=== PATIENT | female | born 1950 | race Caucasian/White ===

== ENCOUNTER 2022-10-24 09:00 | Outpatient (RCR) | payer MEDICARE, SELFPAY ==
--- NOTE | 2022-09-26 13:05 | PTOPEVAL1 ---
Assessment and note entered by Desmond Zayas, PT Evaluation Information Assessment Status Evaluation Diagnosis L shoulder pain and R ankle pain Subjective Information Patient reports she has been having L shoulder and R ankle pain for awhile. The L shoulder pain is worst with overhead lifting and reaching like cans out of the pantry. The R ankle pain is worse since she had a she thinks hip replacement about a year ago. Both joints feel better after her exercises that she has been doing for awhile. No pain with sleeping and no radiating pain on either joint. Reported Pain Level Pain Score 0,0: Self Report Additional Pain Score Comments Pain worse in the morning. Assessment PT Clinical Summary Silvana is a 71 year old female coming into the clinic with L shoulder and R ankle pain. Appears to be arthritic and she is doing exercises every evening . Recommended to patient to do exercises in the morning and afternoon to prevent everything from stiffening up. Physical therapy will work on adjusting HEP and doing manual passive range of motion and stretching of the ankle and shoulder. Manual and modalities as needed for pain control. Patient hesitant to coming to therapy often because she does not want to ask her sister for too many rides. Plan of Care Interventions Electrical Stimulation,Gait Training,Hot Pack/Cold Pack,Manual Therapy,Neuro Re-education,Patient/ Caregiver Education,Therapeutic Activities, Therapeutic Exercise,Ultrasound PT Services Indicated Yes Treatment Frequency and 0-1x/wk for 4 weeks Duration These treatments will address the objective and functional deficits as defined above. The patient will be advanced safely and appropriately in order for the patient to progress towards his/her prior level of function. Additional exercises will be introduced and as well as a comprehensive home exercise program upon discharge, if needed, ?to ensure carryover of functional gains achieved in the clinic. This treatment plan has been reviewed and agreement upon by the patient.
--- NOTE | 2022-09-26 13:05 | OPREHPOC ---
Outpatient Therapy Plan of Care This is a Multidisciplinary Plan of Care that may contain components documented by all disciplines (PT, OT, and ST.) PT Problem 1 PT Problem #1 Knowledge Deficit PT Goal 1 Goal Independent with HEP Target Visit 3 PT Problem 2 PT Problem #2 Impaired Strength PT Goal 1 Goal TONY LE and UE 4+/5 Target Visit 3 PT Problem 3 PT Problem #3 Impaired Range of Motion PT Goal 1 Goal L shoulder flexion 135 degrees Target Visit 3
--- NOTE | 2022-10-24 09:33 | PTOPDC ---
Assessment and note entered by Desmond Zayas, PT Evaluation Information Assessment Status Discharge Diagnosis L shoulder and R ankle pain. Subjective Information Patient reports she is feeling a lot better no pain in the ankle and only 1/10 max on the shoulder. Patient reports she is doing her HEP and feels like she is good, not needing any other therapy at this time. Reported Pain Level Pain Score 1,0: Self Report Assessment PT Clinical Summary Silvana is a 71 year old female coming into the clinic with a diagnosis of L shoulder and R ankle pain and stiffness. Patient was given an HEP and has been faithfully doing the exercises. Pain in ankle is gone and shoulder has diminished to no more than 1/10. Patient has met her strength and pain goals, but not range of motion exercises. Patient okay with being discharged with HEP. Plan of Care PT Services Indicated No
== END 2022-10-24 15:04 | disposition home or self-care (01) ==
LOC: ANHPT 09:00
PROVIDERS: PCP Family Medicine; Visit Provider Family Medicine
DX: M25.571 Pain in right ankle and joints of right foot (principal); M25.512 Pain in left shoulder
CPT/HCPCS: 97110; 97140; 97161

== ENCOUNTER 2023-06-17 05:18 | Inpatient (IN) | payer MEDICARE, SELFPAY ==
[2023-06-17] VITALS (45 sets, daily range): BP systolic 122–159; BP diastolic 86–133; PULSE 80–165; RESP 16–30; TEMP 36.1–36.8; O2SAT 86–100; BMI 22.7
--- NOTE | ~2023-06-17 | XR_ITS ---
Portable chest x-ray Comparison: 06/13/2023 Clinical History: Chest pain Findings: There is mild right basilar haziness. Left lung clear. Cardiomediastinal silhouette is st able. There is moderate to advanced degenerative change of the left glenohumeral joint. Impression: Mild right basilar haziness. Correlate for right basilar pneumonia. Reviewed, dictated and finalized at [facility]. NG STUDIES DIRECTOR Impression: Mild right basilar haziness. Correlate for right basilar pneumonia.
--- NOTE | ~2023-06-17 | CT_ITS ---
EXAMINATION: CTA chest PE protocol DATE: 06/17/2023 17:36 INDICATION: rule out PE TECHNIQUE: Computed tomography angiography (CTA) of the chest was performed with 100 mL Omnipaque-350 intravenous contrast timed to evaluate the pulmonary arteries. Coronal maximum intensity projection 3D-reconstructions were created by the technologist. The dose-length product (DLP) was 151.04 mGy-cm. Automated exposure control and iterative reconstruction technique were employed. COMPARISON: None. FINDINGS: Lung parenchyma and airways: Mild diffuse ground glass opacities with septal thickening. Bibasilar at electasis/scar. Patent airways. Pleura: Unremarkable. Thoracic inlet, axillae and chest wall: Unremarkable. Thoracic aorta: Minimal arch calcification. No dilation or dissection.. Mediastinum: Dilated central pulmonary arteries as can be seen with pulmonary arterial hypertension. Heart and pericardium: Moderate cardiomegaly. Coronary artery calcifications: . Upper abdomen: No significant finding. Bones: Severe left glenohumeral degenerative change with large joint effusion. Pulmonary arteries: Study quality: Adequate. No pulmonary emboli detected. IMPRESSION: No CT evidence of acute pulmonary embolus. Cardiomegaly with mild interstitial edema. Severe left shoulder osteoarthritis with large glenohumeral joint effusion and likely synovitis. Reviewed, dictated and finalized at location [facility]. AL SECRETARY
--- NOTE | 2023-06-17 05:20 | ECG_ITS ---
Measurements Intervals [place] Rate: 166 P: RI: 0 QRS: 114 QRSD: 94 T: -72 QT: 272 QTc: 453 Interpretive Statements ATRIAL FIBRILLATION WITH RAPID VENTRICULAR RESPONSE INCOMPLETE RIGHT BUNDLE BRANCH BLOCK ST DEVIATION AND MODERATE T-WAVE ABNORMALITY, CONSIDER LATERAL ISCHEMIA ST DEVIATION AND MODERATE T-WAVE ABNORMALITY, CONSIDER INFERIOR ISCHEMIA ABNORMAL ECG NO PREVIOUS ECG AVAILABLE FOR COMPARISON Electronically Signed On 06-17-2023 18:23:39 ROD BENDING MACHINE OPERATOR by Mike Abdalla M.D.
[2023-06-17] MEDS: ASPIRIN 81 MG CHEWABLE TABLET 324 MG PO (05:42)
[2023-06-17 05:49] LABS: Basophils Absolute Auto 0.1 K/mm3 (0.0-0.1); Basophils Percent Auto 0.6 % (0.2-1.2); Hematocrit 41.5 % (37.0-47.0); Hemoglobin 13.1 g/dL (12.0-15.0); Immature Granulocyte Absolute 0.03 K/mm3 (0.00-0.031); Immature Granulocyte Percent A 0.3 % (0-0.5); Lymphocytes Absolute Auto 2.11 K/mm3 (0.9-3.2); Lymphocytes Percent Auto 20.8 % (18.3-44.2); Mean Corpuscular HGB Conc 31.6 g/dl (32-36); Mean Corpuscular Hemoglobin 31.4 pg (26-34); Mean Corpuscular Volume 99.5 fl (80-100); Mean Platelet Volume 10.4 fl (7.4-10.4); Monocytes Absolute Auto 0.8 K/mm3 (0.1-0.6); Monocytes Percent Auto 7.5 % (2.6-8.5); Neutrophils Absolute Auto 7.2 K/mm3 (1.3-6.7); Neutrophils Percent Auto 70.8 % (45.5-73.1); Platelet Count Result 456 k/mm3 (150-375); Red Blood Count 4.17 M/mm3 (4.2-5.4); Red Cell Distribution Width 12.6 % (11.5-14.5); White Blood Count 10.1 K/mm3 (4.5-10.0)
[2023-06-17] MEDS: dilTIAZem HCl INJ 25 MG/5 ML VIAL 10 MG IV PUSH (05:49)
[2023-06-17] MEDS: dilTIAZem 100 MG/100 ML 100 MG/100 ML BAG IV CONT (05:49)
--- NOTE | 2023-06-17 05:54 | ED.CHESTPAIN ---
HPI - Chest Pain General Chief Complaint: Chest Pain Stated Complaint: CP, SOB Time Seen by Provider: 06/17/23 05:38 History of Present Illness HPI narrative: 72-year-old female present to the emergency department for evaluation of chest pain and shortness of breath has been going on for the last 3 days. Patient was started on a Z-Madi at home. Patient states he has been having some intermittent chest pain with this as well. Patient denies any prior cardiac history. Patient does have history of hypertension high cholesterol but denies any history of coronary artery disease. Patient does have history of CP Related Data Home Medications Medication Instructions Recorded Confirmed ascorbic acid (vitamin C) 250 mg 250 mg PO DAILY 11/27/21 04/03/23 tablet Allergies Allergy/AdvReac Type Severity Reaction Status Date / Time No Known Allergies Allergy Verified 06/13/23 14:13 Review of Systems Review of Systems: All systems reviewed & are unremarkable except as noted in HPI and below PMFSH Past Medical History Medical History (Updated 06/17/23 @ 07:14 by Jesus Manuel Guillermo MD) Arthritis Cardiac valve prolapse Cerebral palsy Cyst in hand Dermoid cyst of scalp Diarrhea Difficulty swallowing Excess ear wax Ganglion cyst of wrist Hypertension Left shoulder pain Pneumonia Right ankle pain SOB (shortness of breath) Surgical History Surgical History History of hip surgery Family History Family History Father Aneurysm Mother Hypertension Sibling Diabetes mellitus Social History Social History Smoking status: Never smoker Second hand tobacco smoke exposure: No Alcohol intake: never Substance use: never Lack of Transportation: No Lack of Food: Never True Current Housing: I Have Housing Concerned About Future Housing: No Difficulty Paying Gas/Electric Bills: No Difficulty Paying for Meds: No Currently Unemployed: No Difficulty w/ Childcare or Family Care: No Living arrangements: with family Occupation/Education: occupation Gender identity (if verbalized by the patient): Female Sexual Orientation (if Verbalized by the Patient): Straight or Heterosexual Exam Narrative: APPEARANCE: Well appearing, no pain, no distress, well-nourished. HEAD: normocephalic, atraumatic. EYES: PERRLA/EOMI, conjunctivae clear. NOSE: Normal no drainage EARS:TMS clear with good light reflex. THROAT: Pharynx clear, no exudate. NECK: Supple. No adenopathy, no masses. RESPIRATORY: Airway patent, respirations nonlabored. Clear to auscultation bilaterally, no rales, rhonchi, wheezing. CARDIOVASCULAR: AFib with RVR ABDOMINAL: Soft, nontender, nondistended, normal bowel sounds MUSCULOSKELETAL: Moves all extremities. Strength/ROM intact, No edema, No calf tenderness. NEURO: Alert. Cranial nerves II through XII intact. SKIN: Warm, dry. Normal Color Course Course Emergency Course: 72-year-old female presenting to emergency department for evaluation of chest pain and shortness of breath. Upon arrival to the emergency department patient was AFib with RVR. Patient has no prior history of AFib. Patient was treated with Cardizem and did have rate control. Patient's initial troponin was negative. Chest x-ray was concerning for pneumonia, blood cultures were ordered and patient was started on Rocephin in addition to the azithromycin that she is currently taking. Case discussed with hospitalist patient was stepped into the IMU. Cardiology was consulted and they will see the patient today. Patient family were updated on the results of workup and plan for admission. All questions concerns were addressed. Vital Signs Vital signs: Vital Signs Temperature 97 F L 06/17/23 05:36 Pulse Rate 157 H 06/17/23 05:36 Respiratory Rate 24 H 0
[2023-06-17 06:02] LABS: INR 1.1; Prothrombin Time 14.5 Seconds (11.1-14.7)
[2023-06-17 06:03] LABS: Partial Thromboplastin Time 29.9 SECONDS (22.3-36.8)
[2023-06-17 06:12] LABS: Troponin I < 0.012 ng/mL (0.000-0.034)
[2023-06-17 06:17] LABS: Alanine Aminotransferase 174 U/L (6-35); Albumin Level 4.6 g/dL (3.5-5.1); Alkaline Phosphatase 210 U/L (38-126); Anion Gap 9 mmol/L (8-16); Aspartate Amino Transferase 130 U/L (14-36); Bilirubin,Total 0.8 mg/dL (0.2-1.3); Blood Urea Nitrogen 34 mg/dL (7-17); Calcium 9.7 mg/dL (8.4-10.2); Carbon Dioxide 22 mmol/L (22-30); Chloride 106 mmol/L (98-107); Estimated CRCL calculation 63 ml/min; Estimated Glomerular Filt Rate > 60; Glucose 154 mg/dL (65-110); Lipase 96 U/L (23-300); Potassium 4.4 mmol/L (3.4-5.0); Sodium 137 mmol/L (137-145)
[2023-06-17] MEDS: dilTIAZem HCl INJ 25 MG/5 ML VIAL 15 MG IV PUSH (06:25)
--- NOTE | 2023-06-17 06:33 | ECG_ITS ---
Measurements Intervals [place] Rate: 105 P: ME: 0 QRS: 96 QRSD: 102 T: 214 QT: 341 QTc: 452 Interpretive Statements ATRIAL FIBRILLATION WITH RAPID VENTRICULAR RESPONSE INCOMPLETE RIGHT BUNDLE BRANCH BLOCK ST DEVIATION AND MODERATE T-WAVE ABNORMALITY, CONSIDER LATERAL ISCHEMIA ST DEVIATION AND MODERATE T-WAVE ABNORMALITY, CONSIDER INFERIOR ISCHEMIA ABNORMAL ECG COMPARED TO ECG 06/17/2023 05:29:48 NO SIGNIFICANT CHANGES Electronically Signed On 06-17-2023 18:24:24 PAYMENT MANAGER by Mike Abdalla M.D.
[2023-06-17 06:51] LABS: NT Pro B Type Natriuretic Pept 1670 pg/mL (19.9-100)
[2023-06-17] MEDS: AZITHROMYCIN 500 MG/NS 250 ML 500 MG/250 ML BAG 250 MG IVPB (07:22)
[2023-06-17 07:45] LABS: Influenza A QL RT-PCR Negative (Negative); Influenza B QL RT-PCR Negative (Negative); RSV RNA, RT-PCR Negative (Negative); SARS-CoV-2 RNA PCR Negative (Negative)
--- NOTE | 2023-06-17 07:53 | PC.NURSE ---
Breakfast tray ordered
[2023-06-17 09:19] LABS: Troponin I < 0.012 ng/mL (0.000-0.034)
[2023-06-17 11:44] LABS: Troponin I < 0.012 ng/mL (0.000-0.034)
--- NOTE | 2023-06-17 12:47 | PC.NURSE ---
Pt asked about lunch and declined. states she just wants a white soda
[2023-06-17] MEDS: dilTIAZem 100 MG/100 ML 100 MG/100 ML BAG 15 MG IV CONT ×2 (14:07→20:03)
--- NOTE | 2023-06-17 14:59 | PM.IMHP ---
H&P: HPI History of Present Illness Date/Time: 06/17/23 14:59 Chief Complaint: Palpitations or chest pain. Narrative: 72-year-old female past medical history of identify prolapse, cerebral palsy, difficulty swallowing, hypertension who was brought to the ER on account of shortness of breath and palpitations of 3 days duration. There was difficulty with communication due to cerebral palsy and there was no family member at bedside. Nurse reported the patient was brought to the ER symptoms worsened shortness of with the additions distribution. The patient denies any lightheadedness, no diarrhea, no abdominal pain dysuria. Your evaluation notable for heart rate 1 1 9, respiratory rate 19, blood pressure 146/98, labs notable for white count 10.1, AST 130, ALT 174, NT proBNP 67 2, troponin negative x2, chest x-ray showed mild right basilar haziness correlates for right basilar pneumonia. Patient was started on Cardizem drip, antibiotics prior to admission. Cardiology was also consulted. Review of Systems Review of Systems: Other systems reviewed are negative consider other history available. [facility] Past Medical History Medical History (Updated 06/17/23 @ 15:08 by Kristian Gibbons MD) Arthritis Cardiac valve prolapse Cerebral palsy Cyst in hand Dermoid cyst of scalp Diarrhea Difficulty swallowing Excess ear wax Ganglion cyst of wrist Hypertension Left shoulder pain Pneumonia Right ankle pain SOB (shortness of breath) Surgical History Surgical History History of hip surgery Family History Family History Father Aneurysm Mother Hypertension Sibling Diabetes mellitus Social History Social History Smoking status: Never smoker Second hand tobacco smoke exposure: No Alcohol intake: never Substance use: never Lack of Transportation: No Lack of Food: Never True Current Housing: I Have Housing Concerned About Future Housing: No Difficulty Paying Gas/Electric Bills: No Difficulty Paying for Meds: No Currently Unemployed: No Difficulty w/ Childcare or Family Care: No Living arrangements: with family Occupation/Education: occupation Gender identity (if verbalized by the patient): Female Sexual Orientation (if Verbalized by the Patient): Straight or Heterosexual Meds Home Medications and Allergies Home Medications Medication Instructions Recorded Confirmed Type diclofenac sodium 75 mg See Rx Instructions .Route 09/18/23 02/19/24 Rx tablet,delayed release .COMPLEX #60 tabs amlodipine 5 mg-benazepril 10 mg See Rx Instructions .Route 03/25/23 06/17/23 Rx capsule .COMPLEX #90 caps tramadol 50 mg tablet 100 mg PO BID PRN pain #120 tabs 05/20/23 06/17/23 Rx cyclobenzaprine 5 mg tablet See Rx Instructions .Route 06/06/23 06/17/23 Rx .COMPLEX #180 tabs amoxicillin 875 mg-potassium 1 tablet PO BID #20 tabs 06/13/23 06/17/23 Rx clavulanate 125 mg tablet methylprednisolone 4 mg tablets in See Rx Instructions PO PER PKG DIR 06/13/23 06/17/23 Rx a dose pack (Medrol (Madi)) #21 ea gabapentin 100 mg capsule See Rx Instructions .Route 06/17/23 06/17/23 Rx .COMPLEX #60 caps Allergies Allergy/AdvReac Type Severity Reaction Status Date / Time No Known Allergies Allergy Verified 06/13/23 14:13 Vital Signs Vital Signs - 24 hr 06/17/23 05:36 06/17/23 05:49 06/17/23 05:45 Temperature 97 F L Pulse Rate 157 H 165 H 163 H Respiratory Rate 24 H Blood Pressure 151/133 H 159/123 H Pulse Oximetry 86 L Oxygen Delivery Room Air Oxygen Flow Rate 06/17/23 06:05 06/17/23 07:22 06/17/23 07:35 Temperature Pulse Rate 93 109 H Respiratory Rate 21 H Blood Pressure 139/98 H 133/104 H Pulse Oximetry 98 95 Oxygen Delivery Nasal Cannula Oxygen Flow Rate 2 06/17/23 07:53 06/17/23 08:39
--- NOTE | 2023-06-17 15:12 | ADMGEN ---
This patient, Magdalena Dewey, was admitted to IMU Room 209-01. Patient/family oriented to hospital policies and general routines including ID bracelet, bed and alarms, visiting hours, pain management, procedures, bathroom and other care routines, personal items, smoking policy, room service/diet, and visiting hours. Information on how to activate the Rapid Response Team has been discussed. Patient/Family are encouraged to report perceived risks to care and to ask questions if they do not understand what they are told or what they should do.
[2023-06-17] MEDS: METOPROLOL TARTRATE INJ 5 MG/5 ML VIAL IV PUSH ×2 (17:04→21:32)
[2023-06-17] MEDS: ENOXAPARIN 60 MG/0.6 ML SYRINGE SUB-Q (18:02)
[2023-06-17] MEDS: DIGOXIN INJ 250 MCG/ML 2 ML AMP (*BKC) 500 MCG IV PUSH (21:39)
--- NOTE | 2023-06-17 23:29 | PC.NURSE ---
Spoke to Dr. Pelayo regarding patients heart rate sustaining 130's to 140's. Orders received.
[2023-06-18] VITALS (22 sets, daily range): BP systolic 126–147; BP diastolic 65–88; PULSE 70–113; RESP 16–20; TEMP 35.9–36.6; O2SAT 96–100
--- NOTE | 2023-06-18 | ECHO_ITS ---
Patient Info Name: Magdalena Dewey Age: 72 years : 1950 Gender: Female Ht: 64 in Wt: 130 lbs BSA: 1.64 m2 HR: 96 bpm BP: 147 / 80 mmHg Heart Rhythm: Atrial Fibrillation Technical Quality: Good Exam Date: 06/18/2023 10:56 AM Exam Location: Echo Lab Patient Status: Inpatient Admit Date: 06/18/2023 Staff Ordering Physician: Kristian Gibbons MD Youth Manager: Rachel Simpson RDCS Attending Provider: Chelsea Samuel MD Exam Type: CA echo doppler color flow Study Info Indications - atrial fibrillation Complete two-dimensional, color flow and Doppler transthoracic echocardiogram is performed. Summary 1. Complete two-dimensional, color flow and Doppler transthoracic echocardiogram is performed. 2. Left ventricular chamber dimension is normal. 3. Left ventricular systolic function is normal, estimated at 55-60%. 4. Left ventricular septal wall motion is abnormal with septal motion related to bundle branch block. 5. Right ventricular chamber dimension is mildly enlarged. 6. Right ventricular systolic function is normal. 7. Left atrial chamber dimension is severely enlarged. 8. Right atrial chamber dimension is severely enlarged. 9. There is mild mitral valve regurgitation. 10. There is mild tricuspid valve regurgitation. Left Ventricle Left ventricular chamber dimension is normal. Left ventricular systolic function is normal, estimated at 55-60%. There is no increased left ventricular wall thickness. Left ventricular septal wall motion is abnormal with septal motion related to bundle branch block. Right Ventricle Right ventricular chamber dimension is mildly enlarged. Right ventricular systolic function is normal. Left Atria Left atrial chamber dimension is severely enlarged. Right Atria Right atrial chamber dimension is severely enlarged. Atrial Septum Intact interatrial septum visualized by color flow imaging. Aortic Valve The aortic valve is trileaflet. There is no aortic valve stenosis. There is trace aortic valve regurgitation. There is mild aortic valve calcification. Pulmonic Valve The pulmonic valve is not well visualized. Mitral Valve There is mild mitral valve regurgitation. Tricuspid Valve There is mild tricuspid valve regurgitation. Pericardium/Pleural There is no pericardial effusion. Inferior Vena Cava Normal inferior vena cava with >50% collapse upon inspiration consistent with normal right atrial pressure, 3 mmHg. Aorta The aortic root size at the sinus of Valsalva is normal. Left Ventricular Outflow Tract Name Value Normal LVOT 2D LVOT Diameter 2.0 cm LVOT Doppler LVOT Peak Gradient 2 mmHg LVOT Mean Gradient 1 mmHg LVOT VTI 13 cm LVOT VTI/AV VTI Ratio 0.7 LVOT Stroke Volume 41 ml LVOT CO 3.6 l/min LVOT CI 2.2 l/min/m2 Pulmonic Valve Name Value Normal DARON Sotopl
[2023-06-18] MEDS: dilTIAZem 100 MG/100 ML 100 MG/100 ML BAG 15 MG IV CONT ×2 (02:26→08:36)
[2023-06-18] MEDS: DIGOXIN INJ 250 MCG/ML 2 ML AMP (*BKC) IV PUSH (05:23)
[2023-06-18] MEDS: ENOXAPARIN 60 MG/0.6 ML SYRINGE SUB-Q ×2 (05:26→17:17)
[2023-06-18] MEDS: amLODIPine BESYLATE 5 MG TABLET BY MOUTH (08:32)
[2023-06-18] MEDS: CYCLOBENZAPRINE HCL 5 MG TABLET PO ×2 (08:32→20:17)
[2023-06-18] MEDS: GABAPENTIN 100 MG CAPSULE PO ×2 (08:33→20:17)
[2023-06-18] MEDS: lisinopriL 10 MG TABLET PO (08:33)
[2023-06-18] MEDS: DICLOFENAC SOD 75 MG TABLET.EC PO ×2 (08:34→20:17)
[2023-06-18] MEDS: AZITHROMYCIN 500 MG/NS 250 ML 500 MG/250 ML BAG 250 MG IVPB (09:25)
--- NOTE | 2023-06-18 10:49 | PM.CNCAR ---
Assessment and Plan Assessment and plan (1) Atrial fibrillation with rapid ventricular response: Code(s): I48.91 - Unspecified atrial fibrillation Status: Acute Assessment and Plan: Presents with shortness of breath and palpitations and was found to be in atrial fibrillation with rapid ventricular response. This is a new diagnosis. She is rate controlled on diltiazem gtt. Continue diltiazem drip for now, shift to p.o. diltiazem in a.m. and discontinue gtt at that time She is receiving full dose lovenox for a/c now, but can be shifted to DOAC (Eiquis preferred since there is an interaction with Xarelto and Diltiazem Her echo shows severe GAIL but is otherwise unremarkable If rate remains controlled tomorrow on p.o. diltiazem, would anticipate d/c Follow up in our office will be arranged (2) Hypertension: Code(s): I10 - Essential (primary) hypertension Status: Acute Assessment and Plan: At goal. Continue lisinopril. Will d/c amlodipine for the time being since she will also be on p.o. diltiazem. Can increase lisinopril or diltiazem if she needs better BP control. History of Present Illness History of Present Illness Consult date/time: 06/18/23 10:49 Requesting physician: Jesus Manuel Guillermo MD Consult reason: atrial fibrillation Reason For Visit: Afib w RVR/Pneumonia/Chest Pain Narrative: Magdalena Dewey is a 72 year old female with cerebral palsy, hypertension, hyperlipidemia presenting to the hospital with shortness of breath and palpitations. Cardiology is being asked to see her because of atrial fibrillation. Obtaining history from the patient is somewhat difficult as she has some trouble communicating due to cerebral palsy, but she is able to tell me that she is currently not experiencing any shortness of breath, palpitations, chest pain. She does complain of a cough and sore throat. Her telemetry demonstrates rate controlled atrial fibrillation on diltiazem drip. Review of Systems Review of Systems: ROS unobtainable: Yes unobtainable due to medical condition PMFSH Past Medical History Medical History Arthritis Cardiac valve prolapse Cerebral palsy Cyst in hand Dermoid cyst of scalp Diarrhea Difficulty swallowing Excess ear wax Ganglion cyst of wrist Hypertension Left shoulder pain Pneumonia Right ankle pain SOB (shortness of breath) Surgical History Surgical History History of hip surgery Family History Family History Father Aneurysm Mother Hypertension Sibling Diabetes mellitus Social History Social History Smoking status: Never smoker Second hand tobacco smoke exposure: No Alcohol intake: never Substance use: never Do You Feel Safe in your Home?: Yes Lack of Transportation: No Lack of Food: Never True Current Housing: I Have Housing Concerned About Future Housing: No Difficulty Paying Gas/Electric Bills: No Difficulty Paying for Meds: No Currently Unemployed: No Education: High School Diploma/GED Difficulty w/ Childcare or Family Care: No Living arrangements: with family Occupation/Education: occupation Gender identity (if verbalized by the patient): Female Sexual Orientation (if Verbalized by the Patient): Straight or Heterosexual Spiritual care concerns: No Meds Home Medications and Allergies Home Medications Medication Instructions Recorded Confirmed Type amlodipine 5 mg-benazepril 10 mg 1 cap PO DAILY 06/17/23 06/17/23 History capsule cyclobenzaprine 5 mg tablet 5 mg PO Q12H 06/17/23 06/17/23 History diclofenac sodium 75 mg 75 mg PO Q12H 06/17/23 06/17/23 History tablet,delayed release gabapentin 100 mg capsule 100 mg PO Q12H 06/17/23 06/17/23 History tramadol 50 mg tablet 100
--- NOTE | 2023-06-18 17:53 | PM.IMPN ---
Progress Note: A&P Assessment and Plan (1) Atrial fibrillation with rapid ventricular response: Code(s): I48.91 - Unspecified atrial fibrillation Status: Acute Assessment and Plan: Patient seen in the PCP office 06/13 for SOB. She was tachycardic (109) and hypoxic (89%) No exam listed but may have been AFib at that time. She presents to the ED and found to have new onset AFib with rapid ventricular response Troponin negative x2 Echo showing EF 55-60% with biatrial enlargement with RV mildly enlarged Started on diltiazem drip with better rate control [id number] score of 3, started on Lovenox. cardiology consulted and appreciate their input Plan to convert to oral regiment in the morning (2) Pneumonia: Code(s): J18.9 - Pneumonia, unspecified organism Status: Acute Assessment and Plan: CXR showed right basilar haziness and she has a leukocytosis and cough. -- was seen in the clinic on 06/13 and diagnosed with PNA treated with Doxycycline and Augmentin CTA showing no PE but mild diffuse ground glass opacities with septal thickening BCx NGTD Continue Rocephin and Azithro Monitor. Wean off O2 as tolerated (3) Hypertension: Code(s): I10 - Essential (primary) hypertension Status: Acute Assessment and Plan: Patient's blood pressure was reviewed on 06/18 Blood pressure remains well controlled. Will continue to monitor (4) Shoulder effusion: Code(s): M25.419 - Effusion, unspecified shoulder Status: Acute Assessment and Plan: CT in 2020 showing severe degenerative changes to the left shoulder CTA chest here showing severe left shoulder OA with large glenohumeral joint effusion likely synovitis. No evidence that the effusion is infectious or impinging on her mobility. Supportive care. (5) Cerebral palsy: Code(s): G80.9 - Cerebral palsy, unspecified Status: Acute Assessment and Plan: Cerebral palsy with affectation of speech Monitor Plan Code status - DNR DVT prophylaxis on full dose Lovenox Subjective Date/time seen: 06/18/23 17:53 Interval history: 72yo female with cerebral palsy, dysphagia and HTN here for palpitations and chest pain. Patient denies chest pain or abdominal pain. No SOB. has a nighttime cough that is long standing but worsened recently. Hx difficult due to garbled speech. Exam Narrative: AF 97.4 132/88 83 20 100% 2L Gen - NARD Chest - decreased BS in the bases o/w clear. CV - irregularly irregular. Tele showing AFib with controlled rate Abd - Soft, NT/ND, Positive BS Ext - No pedal edema. no left shoulder swelling. Normal ROM. No warmth Neuro - Alert, garbled speech. exaggerated apraxic UE movements. Psych - Nml mood and odd affect Skin - Warm and dry Objective Data Vital Signs Vital Signs: Vital Signs - 24 hr 06/17/23 18:00 06/17/23 20:03 06/17/23 20:19 Temperature 97.7 F Pulse Rate 115 H 126 H 119 H Respiratory Rate 16 Blood Pressure 140/89 140/89 Pulse Oximetry 98 Oxygen Delivery Oxygen Flow Rate 06/17/23 20:00 06/17/23 21:32 06/17/23 21:39 Temperature Pulse Rate 119 H 115 H 115 H Respiratory Rate 16 Blood Pressure Pulse Oximetry 98 Oxygen Delivery Nasal Cannula Oxygen Flow Rate 2 06/17/23 20:00 06/17/23 22:00 06/17/23 23:52 Temperature 97.5 F L Pulse Rate 120 H 93 113 H Respiratory Rate 16 Blood Pressure 152/92 H Pulse Oximetry 96 Oxygen Delivery Oxygen Flow Rate 06/18/23 00:00 06/18/23 00:00 06/18/23 02:00 Temperature Pulse Rate 113 H 71 110 H Respiratory Rate 16 Blood Pressure Pulse Oximetry 96 Oxygen Delivery Nasal Cannula Oxygen Flow Rate 2 06/18/23 02:26 06/18/23 03:58 06/18/23 04:00 Temperature 97.8 F Pulse Rate 82 82 87 Respiratory Rate 16 16 Blood Pressure 147/80 H Pulse Oximetry 96 100 Oxygen Delivery Nasal Cannula Oxygen Flow Rate 2 06/18
[2023-06-18] MEDS: PANTOPRAZOLE 40 MG TABLET PO (20:24)
[2023-06-19] VITALS (18 sets, daily range): BP systolic 105–121; BP diastolic 74–88; PULSE 70–142; RESP 16–20; TEMP 36.1–37; O2SAT 90–100
[2023-06-19] MEDS: dilTIAZem 100 MG/100 ML 100 MG/100 ML BAG 15 MG IV CONT ×2 (03:35→18:40)
[2023-06-19] MEDS: ENOXAPARIN 60 MG/0.6 ML SYRINGE SUB-Q (05:00)
[2023-06-19] MEDS: DICLOFENAC SOD 75 MG TABLET.EC PO ×2 (08:16→21:12)
[2023-06-19] MEDS: CYCLOBENZAPRINE HCL 5 MG TABLET PO ×2 (08:16→21:14)
[2023-06-19] MEDS: PANTOPRAZOLE 40 MG TABLET PO (08:16)
[2023-06-19] MEDS: lisinopriL 10 MG TABLET PO (08:16)
[2023-06-19] MEDS: dilTIAZem HCL CD 120 MG CAP.24HR PO ×2 (08:16→13:18)
[2023-06-19] MEDS: GABAPENTIN 100 MG CAPSULE PO ×2 (08:16→21:12)
[2023-06-19] MEDS: AZITHROMYCIN 500 MG/NS 250 ML 500 MG/250 ML BAG 250 MG IVPB (08:57)
--- NOTE | 2023-06-19 09:52 | PM.IMPN ---
Progress Note: A&P Assessment and Plan (1) Atrial fibrillation with rapid ventricular response: Code(s): I48.91 - Unspecified atrial fibrillation Status: Acute Assessment and Plan: Patient seen in the PCP office 06/13 for SOB. She was tachycardic (109) and hypoxic (89%) No exam listed but may have been AFib at that time. She presents to the ED and found to have new onset AFib with rapid ventricular response Troponin negative x2 Echo showing EF 55-60% with biatrial enlargement with RV mildly enlarged Started on diltiazem drip with better rate control [id number] score of 3, started on Lovenox. On 06/19 she has been converted already to PO diltiazem. Tomorrow her diltiazem is increased to 240 mg q.day by Cardiology. Continue to monitor heart rate and blood pressure. Give additional doses today as appropriate. Per cardiology will transition from Lovenox to Eliquis. Will attempt to discontinue her diclofenac replace with a non NSAID pain killer if she allows. (2) Acute hypoxemic respiratory failure: Code(s): J96.01 - Acute respiratory failure with hypoxia Status: Acute Assessment and Plan: Likely due to community-acquired pneumonia. Resolved on 06/19. On room air. (3) Pneumonia: Code(s): J18.9 - Pneumonia, unspecified organism Status: Acute Assessment and Plan: CXR showed right basilar haziness and she has a leukocytosis and cough. -- was seen in the clinic on 06/13 and diagnosed with PNA treated with Doxycycline and Augmentin CTA showing no PE but mild diffuse ground glass opacities with septal thickening BCx NGTD Continue Rocephin and Azithro. Monitor. Deescalate antibiotics today or tomorrow. Rechecking CBC as she presented with leukocytosis. (4) Hypertension: Code(s): I10 - Essential (primary) hypertension Status: Acute Assessment and Plan: On the soft side. Continue to monitor as diltiazem is increased. Lisinopril DCed on 06/19 but she already received dose. At home she was on amlodipine benazepril. (5) Shoulder effusion: Code(s): M25.419 - Effusion, unspecified shoulder Status: Acute Assessment and Plan: CT in 2020 showing severe degenerative changes to the left shoulder CTA chest here showing severe left shoulder OA with large glenohumeral joint effusion likely synovitis. No evidence that the effusion is infectious or impinging on her mobility. Supportive care. (6) Cerebral palsy: Code(s): G80.9 - Cerebral palsy, unspecified Status: Acute Assessment and Plan: Cerebral palsy with affectation of speech Monitor (7) Transaminitis: Code(s): R74.01 - Elevation of levels of liver transaminase levels Status: Acute Assessment and Plan: On admission ALT 174, AST 130, and alk phosp 210 while T bili normal. On 06/19 will recheck the trend. Neither the patient or sister Sailaja are aware of any previous liver issues. She did receive Medrol Dosepak prior to admission so most likely this will just need trending and follow-up as outpatient. Plan 72-year-old female with past medical history cerebral palsy affecting speech and swallowing, hypertension, arthritis who presents from her PCP office as she was evaluated for shortness of breath and was found to be hypoxic and tachycardic. Admitted on 06/17 for acute hypoxic respiratory failure and atrial fibrillation with RVR new diagnosis. FEN: Saline lock IV. GI prophylaxis: Not indicated DVT prophylaxis: Eliquis started this admission Lines: Peripheral IV Code Status: DNR Dispo: Stable in IMU. The patient denies using assistive devices for ambulation. She lives at home with her sister Sailaja who is her tuft machine operator. Subjective Date/time seen: 06/19/23 09:52 Interval history: No acute overnight events. The patient is awake and alert and wondering when she can go home. She denies shortness of breath or chest pain or
[2023-06-19 10:08] LABS: Basophils Absolute Auto 0.1 K/mm3 (0.0-0.1); Basophils Percent Auto 0.8 % (0.2-1.2); Eosinophils Absolute Auto 0.2 K/mm3 (0-0.3); Eosinophils Percent Auto 2.2 % (0-4.4); Hematocrit 41.4 % (37.0-47.0); Immature Granulocyte Absolute 0.04 K/mm3 (0.00-0.031); Immature Granulocyte Percent A 0.4 % (0-0.5); Lymphocytes Absolute Auto 1.07 K/mm3 (0.9-3.2); Lymphocytes Percent Auto 10.4 % (18.3-44.2); Mean Corpuscular HGB Conc 31.4 g/dl (32-36); Mean Corpuscular Hemoglobin 30.6 pg (26-34); Mean Corpuscular Volume 97.4 fl (80-100); Monocytes Absolute Auto 1.2 K/mm3 (0.1-0.6); Monocytes Percent Auto 11.3 % (2.6-8.5); Neutrophils Absolute Auto 7.7 K/mm3 (1.3-6.7); Neutrophils Percent Auto 74.9 % (45.5-73.1); Platelet Count Result 402 k/mm3 (150-375); Red Blood Count 4.25 M/mm3 (4.2-5.4); Red Cell Distribution Width 12.3 % (11.5-14.5); White Blood Count 10.3 K/mm3 (4.5-10.0)
[2023-06-19 10:35] LABS: Alanine Aminotransferase 88 U/L (6-35); Albumin Level 3.8 g/dL (3.5-5.1); Alkaline Phosphatase 159 U/L (38-126); Anion Gap 4 mmol/L (8-16); Aspartate Amino Transferase 42 U/L (14-36); Bilirubin,Total 0.5 mg/dL (0.2-1.3); Blood Urea Nitrogen 10 mg/dL (7-17); Carbon Dioxide 26 mmol/L (22-30); Chloride 108 mmol/L (98-107); Estimated CRCL calculation 77 ml/min; Estimated Glomerular Filt Rate > 60; Glucose 105 mg/dL (65-110); Magnesium 2.1 mg/dL (1.6-2.3); Potassium 3.2 mmol/L (3.4-5.0); Sodium 138 mmol/L (137-145)
--- NOTE | 2023-06-19 15:08 | PM.PNCARD ---
Progress Note: A&P Assessment and Plan (1) Atrial fibrillation with rapid ventricular response: Code(s): I48.91 - Unspecified atrial fibrillation Status: Acute Assessment and Plan: Presents with shortness of breath and palpitations and was found to be in atrial fibrillation with rapid ventricular response. This is a new diagnosis. She is rate controlled on diltiazem gtt. Discontinue Quiroz apparent in favor oral systemic anticoagulation as discussed with the patient and power of corporate associate attorney bedside. Begin Eliquis 5 mg twice daily this evening. Give additional 120 mg diltiazem CD if SBP greater than 110 mm Hg for additional heart rate control. Increase diltiazem to 240 mg daily to begin tomorrow morning. Continue telemetry. Monitor BP closely. Patient has a history of fall or recently but not generally as they report. Discussed at great length elevated risk for bleeding complication which could be catastrophic with falls under head injury particularly if intracerebral hemorrhage is noted. Advised the much presents to the ER if also bleeding or head injury. If recurrent issues in this regard discussed likely recommendation that systemic anticoagulation contraindicated and may need to be discontinued. In that case referral for left atrial appendage occlusion device would be pursued on an outpatient basis. Follow up in our office will be arranged Discontinue diclofenac to reduce risk for bleeding complications on systemic anticoagulation. I spent 41 minutes care of this patient at bedside including discussions the patient and family, chart review, medical decision-making, and documentation. (2) Hypertension: Code(s): I10 - Essential (primary) hypertension Status: Acute Assessment and Plan: At goal. Continue lisinopril but reduce to 5 mg daily due to relative hypotension to allow for additional room for heart rate control with increase in diltiazem dosing. Amlodipine discontinued. (3) Transaminitis: Code(s): R74.01 - Elevation of levels of liver transaminase levels Status: Acute Assessment and Plan: Significant elevation in liver function tests. Discussed with primary service. Further workup underway. Repeat laboratory studies. Defer to primary service. (4) Pneumonia: Code(s): J18.9 - Pneumonia, unspecified organism Status: Acute Assessment and Plan: Management per primary service. Continue intravenous ceftriaxone and azithromycin, transition to oral antibiotic regimen appropriate. Subjective Date/time seen: Date of service: 06/19/23 15:08 Follow-up for atrial fibrillation with RVR Interval history: Patient's power of corporate associate attorney at bedside. Patient states he is feeling well denies dizziness, shortness of breath or palpitation. No chest pain. Heart rate better controlled in AFib on telemetry but remains rapid at times at rest generally low 100s as low as the 90s up to 130s if more animated. Review of Systems Review of Systems: Remainder of the review of systems is otherwise negative aside from that noted in the HPI. All systems reviewed & are unremarkable except as noted in HPI and below ROS unobtainable: Yes unobtainable due to medical condition Constitutional: Constitutional: Reports as per HPI and Reports no additional constitutional complaints Eyes: Eyes: Reports as per HPI and Reports no additional eye complaints ENT: Reports system reviewed and no additional complaints, except as documented and Reports as per HPI Cardiovascular: Cardiovascular: Reports as per HPI and Reports no additional cardiovascular complaints Respiratory: Respiratory: Reports as per HPI and Reports no additional respiratory complaints Gastrointestinal: Gastrointestinal: Reports as per HPI and Reports no additional gastrointestinal complaints Genitourinary: Genitourinary: Reports as per HPI Musculoskeletal: Musculoskeletal: Reports no additional musculoskeletal compla
--- NOTE | 2023-06-19 18:03 | PC.NURSE ---
After discontinuing cardizem drip, patient took a total of 240 mg of cardizem today by 1300. At 1700, the patient's heart rate was sustaining from 110-140's. The air conditioning manager clipper machine was notified, and an order was received to restart the cardizem drip at 15 mg/hr.
[2023-06-19] MEDS: APIXABAN 5 MG TABLET PO (21:14)
[2023-06-20] VITALS (23 sets, daily range): BP systolic 111–155; BP diastolic 71–102; PULSE 63–121; RESP 16–18; TEMP 36.1–36.7; O2SAT 90–100
[2023-06-20] MEDS: dilTIAZem 100 MG/100 ML 100 MG/100 ML BAG 15 MG IV CONT ×2 (01:25→07:49)
[2023-06-20 04:57] LABS: Basophils Percent Auto 0.6 % (0.2-1.2); Eosinophils Absolute Auto 0.3 K/mm3 (0-0.3); Eosinophils Percent Auto 3.9 % (0-4.4); Hemoglobin 12.8 g/dL (12.0-15.0); Immature Granulocyte Absolute 0.02 K/mm3 (0.00-0.031); Immature Granulocyte Percent A 0.3 % (0-0.5); Lymphocytes Absolute Auto 1.43 K/mm3 (0.9-3.2); Lymphocytes Percent Auto 19.9 % (18.3-44.2); Mean Corpuscular Volume 96.9 fl (80-100); Mean Platelet Volume 10.1 fl (7.4-10.4); Monocytes Absolute Auto 0.8 K/mm3 (0.1-0.6); Monocytes Percent Auto 11.4 % (2.6-8.5); Neutrophils Absolute Auto 4.6 K/mm3 (1.3-6.7); Neutrophils Percent Auto 63.9 % (45.5-73.1); Platelet Count Result 389 k/mm3 (150-375); Red Blood Count 4.13 M/mm3 (4.2-5.4); Red Cell Distribution Width 12.3 % (11.5-14.5); White Blood Count 7.2 K/mm3 (4.5-10.0)
[2023-06-20 05:13] LABS: Alanine Aminotransferase 73 U/L (6-35); Albumin Level 3.5 g/dL (3.5-5.1); Alkaline Phosphatase 154 U/L (38-126); Anion Gap 3 mmol/L (8-16); Aspartate Amino Transferase 31 U/L (14-36); Bilirubin,Total 0.6 mg/dL (0.2-1.3); Blood Urea Nitrogen 14 mg/dL (7-17); Calcium 8.9 mg/dL (8.4-10.2); Carbon Dioxide 26 mmol/L (22-30); Chloride 108 mmol/L (98-107); Estimated CRCL calculation 77 ml/min; Estimated Glomerular Filt Rate > 60; Glucose 87 mg/dL (65-110); Magnesium 2.3 mg/dL (1.6-2.3); Potassium 3.2 mmol/L (3.4-5.0); Sodium 137 mmol/L (137-145)
[2023-06-20] MEDS: APIXABAN 5 MG TABLET PO ×2 (09:29→21:01)
[2023-06-20] MEDS: PANTOPRAZOLE 40 MG TABLET PO (09:29)
[2023-06-20] MEDS: GABAPENTIN 100 MG CAPSULE PO ×2 (09:30→21:01)
[2023-06-20] MEDS: DICLOFENAC SOD 75 MG TABLET.EC PO (09:30)
[2023-06-20] MEDS: dilTIAZem HCL CD 120 MG CAP.24HR 240 MG PO (09:30)
[2023-06-20] MEDS: CYCLOBENZAPRINE HCL 5 MG TABLET PO ×2 (09:30→21:01)
[2023-06-20] MEDS: AZITHROMYCIN 500 MG/NS 250 ML 500 MG/250 ML BAG 250 MG IVPB (09:38)
--- NOTE | 2023-06-20 13:14 | PM.IMPN ---
Progress Note: A&P Assessment and Plan (1) Atrial fibrillation with rapid ventricular response: Code(s): I48.91 - Unspecified atrial fibrillation Status: Acute Assessment and Plan: Patient seen in the PCP office 06/13 for SOB. She was tachycardic (109) and hypoxic (89%) No exam listed but may have been AFib at that time. She presents to the ED and found to have new onset AFib with rapid ventricular response Troponin negative x2 Echo showing EF 55-60% with biatrial enlargement with RV mildly enlarged Started on diltiazem drip with better rate control [id number] score of 3, started on Lovenox. On 06/19 she has been converted already to PO diltiazem. Tomorrow her diltiazem is increased to 240 mg q.day by Cardiology. Continue to monitor heart rate and blood pressure. Give additional doses today as appropriate. Per cardiology will transition from Lovenox to Eliquis. Will attempt to discontinue her diclofenac replace with a non NSAID pain killer if she allows. 04/30/2021 overnight placed on diltiazem drip. Cardiology to manage. Metoprolol being added. Continue Eliquis. (2) Acute hypoxemic respiratory failure: Code(s): J96.01 - Acute respiratory failure with hypoxia Status: Acute Assessment and Plan: Likely due to community-acquired pneumonia. Resolved on 06/19. On room air. (3) Pneumonia: Code(s): J18.9 - Pneumonia, unspecified organism Status: Acute Assessment and Plan: CXR showed right basilar haziness and she has a leukocytosis and cough. -- was seen in the clinic on 06/13 and diagnosed with PNA treated with Doxycycline and Augmentin CTA showing no PE but mild diffuse ground glass opacities with septal thickening BCx NGTD Continue Rocephin and Azithro. Monitor. Deescalate antibiotics today or tomorrow. Rechecking CBC as she presented with leukocytosis. On 06/20 deescalate to Augmentin for a total 5 day course. Leukocytosis resolved. (4) Hypertension: Code(s): I10 - Essential (primary) hypertension Status: Acute Assessment and Plan: Was on the soft side previously but now normal to slightly elevated. Continue to monitor. Lisinopril and benazepril discontinued which are home medications. (5) Shoulder effusion: Code(s): M25.419 - Effusion, unspecified shoulder Status: Acute Assessment and Plan: CT in 2020 showing severe degenerative changes to the left shoulder CTA chest here showing severe left shoulder OA with large glenohumeral joint effusion likely synovitis. No evidence that the effusion is infectious or impinging on her mobility. Supportive care. (6) Cerebral palsy: Code(s): G80.9 - Cerebral palsy, unspecified Status: Acute Assessment and Plan: Cerebral palsy with affectation of speech Monitor (7) Transaminitis: Code(s): R74.01 - Elevation of levels of liver transaminase levels Status: Acute Assessment and Plan: On admission ALT 174, AST 130, and alk phosp 210 while T bili normal. On 06/19 will recheck the trend. Neither the patient or sister Sailaja are aware of any previous liver issues. She did receive Medrol Dosepak prior to admission so most likely this will just need trending and follow-up as outpatient. On 11/17 transaminitis continues to downtrend. Plan 72-year-old female with past medical history cerebral palsy affecting speech and swallowing, hypertension, arthritis who presents from her PCP office as she was evaluated for shortness of breath and was found to be hypoxic and tachycardic. Admitted on 06/17 for acute hypoxic respiratory failure and atrial fibrillation with RVR new diagnosis. FEN: Saline lock IV. GI prophylaxis: Not indicated DVT prophylaxis: Eliquis started this admission Lines: Peripheral IV Code Status: DNR Dispo: Stable in IMU. The patient denies using assistive devices for ambulation. She lives at home with her sister
[2023-06-20] MEDS: POTASSIUM CHLORIDE 20 MEQ ER TABLET 40 MEQ PO (13:45)
[2023-06-20] MEDS: METOPROLOL TARTRATE 25 MG TABLET PO ×2 (13:45→21:01)
--- NOTE | 2023-06-20 14:15 | PM.PNCARD ---
Progress Note: A&P Assessment and Plan (1) Atrial fibrillation with rapid ventricular response: Code(s): I48.91 - Unspecified atrial fibrillation Status: Acute Assessment and Plan: Presents with shortness of breath and palpitations and was found to be in atrial fibrillation with rapid ventricular response. This is a new diagnosis. She is rate controlled on diltiazem gtt. Continue Eliquis 5 mg twice daily this evening. Continue diltiazem to 240 mg daily Add metoprolol 25mg b.i.d. Continue telemetry. Monitor BP closely. Patient has a history of fall - terminal manager may need referral for LAAO Follow up in our office will be arranged Discontinue diclofenac to reduce risk for bleeding complications on systemic anticoagulation. ? d/c tomorrow if rate remains controlled off diltiazem gtt (2) Hypertension: Code(s): I10 - Essential (primary) hypertension Status: Acute Assessment and Plan: At goal. Continue lisinopril but reduce to 5 mg daily due to relative hypotension to allow for additional room for heart rate control with increase in diltiazem dosing. Amlodipine discontinued. (3) Transaminitis: Code(s): R74.01 - Elevation of levels of liver transaminase levels Status: Acute Assessment and Plan: Significant elevation in liver function tests. Further workup underway. Repeat laboratory studies. Defer to primary service. (4) Pneumonia: Code(s): J18.9 - Pneumonia, unspecified organism Status: Acute Assessment and Plan: Management per primary service. Continue intravenous ceftriaxone and azithromycin, transition to oral antibiotic regimen appropriate. Subjective Date/time seen: 06/20/23 14:15 Interval history: Cardiology follow-up for atrial fibrillation Date of service 06/20/2023: She went back into RVR last night and was placed back on Diltiazem drip. She is rate controlled currently. Review of Systems Review of Systems: Remainder of the review of systems is otherwise negative aside from that noted in the HPI. All systems reviewed & are unremarkable except as noted in HPI and below ROS unobtainable: Yes unobtainable due to medical condition Constitutional: Constitutional: Reports as per HPI and Reports no additional constitutional complaints Eyes: Eyes: Reports as per HPI and Reports no additional eye complaints ENT: Reports system reviewed and no additional complaints, except as documented and Reports as per HPI Cardiovascular: Cardiovascular: Reports as per HPI and Reports no additional cardiovascular complaints Respiratory: Respiratory: Reports as per HPI and Reports no additional respiratory complaints Gastrointestinal: Gastrointestinal: Reports as per HPI and Reports no additional gastrointestinal complaints Genitourinary: Genitourinary: Reports as per HPI Musculoskeletal: Musculoskeletal: Reports no additional musculoskeletal complaints and Reports as per HPI Integumentary/Breasts: Skin/Breast: Reports system reviewed and no additional complaints, except as docu and Reports as per HPI Neurologic: Reports system reviewed and no additional complaints, except as documented and Reports as per HPI Psychiatric: Psychiatric: Reports no additional psychiatric complaints and Reports as per HPI Endocrine: Endocrine: Reports no additional endocrine complaints and Reports as per HPI Hematologic/Lymphatic: Hematologic/Lymphatic: Reports no additional hematologic/lymphatic complaints and Reports as per HPI Allergic/Immunologic: Allergic/Immunologic: Reports no additional allergic/immunologic complaints and Reports as per HPI Exam Const: General: comfortable, no acute distress, alert and awake Orientation/consciousness: patient oriented x3 HENMT: Head: normal to inspection Other: She is edentulous and has dysarthria because of this Eyes: General: appearance normal, both eyes and all related structures Pupils: Equal, round
--- NOTE | 2023-06-20 14:26 | PC.NURSE ---
On 06/20/23, the student, [ Echo Aldana], provided care and completed [facility] documentation on this patient. I have reviewed the student's documentation and agree with the findings.
[2023-06-20] MEDS: AMOXICILLIN/CLAVULANATE K 875-125 MG TAB 1 TABLET PO (21:01)
[2023-06-21] VITALS (22 sets, daily range): BP systolic 101–145; BP diastolic 61–92; PULSE 68–151; RESP 18–20; TEMP 36.2–36.6; O2SAT 90–99
[2023-06-21 04:37] LABS: Hematocrit 42.8 % (37.0-47.0); Hemoglobin 13.7 g/dL (12.0-15.0); Mean Corpuscular Volume 96.8 fl (80-100); Mean Platelet Volume 9.9 fl (7.4-10.4); Platelet Count Result 439 k/mm3 (150-375); Red Blood Count 4.42 M/mm3 (4.2-5.4); Red Cell Distribution Width 12.5 % (11.5-14.5); White Blood Count 9.3 K/mm3 (4.5-10.0)
[2023-06-21 04:58] LABS: Anion Gap 3 mmol/L (8-16); Blood Urea Nitrogen 17 mg/dL (7-17); Calcium 9.2 mg/dL (8.4-10.2); Carbon Dioxide 27 mmol/L (22-30); Chloride 109 mmol/L (98-107); Estimated CRCL calculation 66 ml/min; Estimated Glomerular Filt Rate > 60; Glucose 93 mg/dL (65-110); Magnesium 2.4 mg/dL (1.6-2.3); Potassium 3.8 mmol/L (3.4-5.0); Sodium 139 mmol/L (137-145)
[2023-06-21] MEDS: METOPROLOL TARTRATE 25 MG TABLET PO (07:57)
[2023-06-21] MEDS: CYCLOBENZAPRINE HCL 5 MG TABLET PO ×2 (07:57→20:12)
[2023-06-21] MEDS: AMOXICILLIN/CLAVULANATE K 875-125 MG TAB 1 TABLET PO ×2 (07:58→20:11)
[2023-06-21] MEDS: APIXABAN 5 MG TABLET PO ×2 (07:58→20:11)
[2023-06-21] MEDS: PANTOPRAZOLE 40 MG TABLET PO (07:58)
[2023-06-21] MEDS: dilTIAZem HCL CD 120 MG CAP.24HR 240 MG PO (07:58)
[2023-06-21] MEDS: GABAPENTIN 100 MG CAPSULE PO ×2 (07:58→20:11)
--- NOTE | 2023-06-21 09:30 | PM.PNCARD ---
Progress Note: A&P Assessment and Plan (1) Atrial fibrillation with rapid ventricular response: Code(s): I48.91 - Unspecified atrial fibrillation Status: Acute Assessment and Plan: Presents with shortness of breath and palpitations and was found to be in atrial fibrillation with rapid ventricular response. This is a new diagnosis. Continue Eliquis 5 mg twice daily this evening. Continue diltiazem to 240 mg daily Increase metoprolol to 50mg q8h as she remains tachycardic Continue telemetry. Monitor BP closely. Patient has a history of fall - computer terminal operator may need referral for LAAO Follow up in our office will be arranged (2) Hypertension: Code(s): I10 - Essential (primary) hypertension Status: Acute Assessment and Plan: At goal. (3) Transaminitis: Code(s): R74.01 - Elevation of levels of liver transaminase levels Status: Acute Assessment and Plan: Significant elevation in liver function tests. Trending down. Management per primary service (4) Pneumonia: Code(s): J18.9 - Pneumonia, unspecified organism Status: Acute Assessment and Plan: Management per primary service. She has been transitioned to oral antibiotic regimen Subjective Date/time seen: 06/21/23 09:30 Interval history: Cardiology follow-up for atrial fibrillation Date of service 06/20/2023: She went back into RVR last night and was placed back on Diltiazem drip. She is rate controlled currently. Date of service 06/21/2023: Remains tachycardic today, rate 115-130 generally. She is asymptomatic. Review of Systems Review of Systems: Remainder of the review of systems is otherwise negative aside from that noted in the HPI. All systems reviewed & are unremarkable except as noted in HPI and below ROS unobtainable: Yes unobtainable due to medical condition Constitutional: Constitutional: Reports as per HPI and Reports no additional constitutional complaints Eyes: Eyes: Reports as per HPI and Reports no additional eye complaints ENT: Reports system reviewed and no additional complaints, except as documented and Reports as per HPI Cardiovascular: Cardiovascular: Reports as per HPI and Reports no additional cardiovascular complaints Respiratory: Respiratory: Reports as per HPI and Reports no additional respiratory complaints Gastrointestinal: Gastrointestinal: Reports as per HPI and Reports no additional gastrointestinal complaints Genitourinary: Genitourinary: Reports as per HPI Musculoskeletal: Musculoskeletal: Reports no additional musculoskeletal complaints and Reports as per HPI Integumentary/Breasts: Skin/Breast: Reports system reviewed and no additional complaints, except as docu and Reports as per HPI Neurologic: Reports system reviewed and no additional complaints, except as documented and Reports as per HPI Psychiatric: Psychiatric: Reports no additional psychiatric complaints and Reports as per HPI Endocrine: Endocrine: Reports no additional endocrine complaints and Reports as per HPI Hematologic/Lymphatic: Hematologic/Lymphatic: Reports no additional hematologic/lymphatic complaints and Reports as per HPI Allergic/Immunologic: Allergic/Immunologic: Reports no additional allergic/immunologic complaints and Reports as per HPI Exam Const: General: comfortable, no acute distress, alert and awake Orientation/consciousness: patient oriented x3 HENMT: Head: normal to inspection Other: She is edentulous and has dysarthria because of this Eyes: General: appearance normal, both eyes and all related structures Pupils: Equal, round and reactive pupils present Neck: Neck: normal visual inspection, supple and no JVD Carotids: normal carotid upstroke Resp: Effort & Inspection: normal respiratory effort Auscultation: clear to auscultation bilaterally Cardio: Rate: tachycardic Rhythm: abnormal rhythm irregularly irregular Heart sounds: S1 normal h
[2023-06-21] MEDS: METOPROLOL TARTRATE 50 MG TAB PO ×2 (13:50→21:13)
--- NOTE | 2023-06-21 16:22 | PM.IMPN ---
Progress Note: A&P Assessment and Plan (1) Atrial fibrillation with rapid ventricular response: Code(s): I48.91 - Unspecified atrial fibrillation Status: Acute Assessment and Plan: Patient seen in the PCP office 06/13 for SOB. She was tachycardic (109) and hypoxic (89%) No exam listed but may have been AFib at that time. She presents to the ED and found to have new onset AFib with rapid ventricular response Troponin negative x2 Echo showing EF 55-60% with biatrial enlargement with RV mildly enlarged Started on diltiazem drip with better rate control [id number] score of 3, started on Lovenox. On 06/19 she has been converted already to PO diltiazem. Tomorrow her diltiazem is increased to 240 mg q.day by Cardiology. Continue to monitor heart rate and blood pressure. Give additional doses today as appropriate. Per cardiology will transition from Lovenox to Eliquis. Will attempt to discontinue her diclofenac replace with a non NSAID pain killer if she allows. On 06/20 overnight placed on diltiazem drip. Cardiology to manage. Metoprolol being added. Continue Eliquis. On 06/21 patient is off diltiazem drip. Cardiology increasing metoprolol as she still had uncontrolled. Continue to monitor. Continue Eliquis (2) Acute hypoxemic respiratory failure: Code(s): J96.01 - Acute respiratory failure with hypoxia Status: Acute Assessment and Plan: Likely due to community-acquired pneumonia. Resolved on 06/19. On room air. (3) Pneumonia: Code(s): J18.9 - Pneumonia, unspecified organism Status: Acute Assessment and Plan: CXR showed right basilar haziness and she has a leukocytosis and cough. -- was seen in the clinic on 06/13 and diagnosed with PNA treated with Doxycycline and Augmentin CTA showing no PE but mild diffuse ground glass opacities with septal thickening BCx NGTD Continue Rocephin and Azithro. Monitor. Deescalate antibiotics today or tomorrow. Rechecking CBC as she presented with leukocytosis. On 06/20 deescalate to Augmentin for a total 5 day course. Leukocytosis resolved. (4) Hypertension: Code(s): I10 - Essential (primary) hypertension Status: Acute Assessment and Plan: Was on the soft side previously but now normal to slightly elevated. Continue to monitor. Lisinopril and benazepril discontinued which are home medications. (5) Shoulder effusion: Code(s): M25.419 - Effusion, unspecified shoulder Status: Acute Assessment and Plan: CT in 2020 showing severe degenerative changes to the left shoulder CTA chest here showing severe left shoulder OA with large glenohumeral joint effusion likely synovitis. No evidence that the effusion is infectious or impinging on her mobility. Supportive care. (6) Cerebral palsy: Code(s): G80.9 - Cerebral palsy, unspecified Status: Acute Assessment and Plan: Cerebral palsy with affectation of speech Monitor (7) Transaminitis: Code(s): R74.01 - Elevation of levels of liver transaminase levels Status: Acute Assessment and Plan: On admission ALT 174, AST 130, and alk phosp 210 while T bili normal. On 06/19 will recheck the trend. Neither the patient or sister Sailaja are aware of any previous liver issues. She did receive Medrol Dosepak prior to admission so most likely this will just need trending and follow-up as outpatient. On 11/17 transaminitis continues to downtrend. Plan 72-year-old female with past medical history cerebral palsy affecting speech and swallowing, hypertension, arthritis who presents from her PCP office as she was evaluated for shortness of breath and was found to be hypoxic and tachycardic. Admitted on 06/17 for acute hypoxic respiratory failure and atrial fibrillation with RVR new diagnosis. FEN: Saline lock IV. GI prophylaxis: Not indicated DVT prophylaxis: Eliquis started this admission Lines: Perip
[2023-06-22] VITALS (19 sets, daily range): BP systolic 109–139; BP diastolic 68–87; PULSE 83–121; RESP 18–20; TEMP 36.2–36.9; O2SAT 92–100
[2023-06-22] MEDS: METOPROLOL TARTRATE 50 MG TAB PO ×2 (06:16→14:12)
[2023-06-22] MEDS: AMOXICILLIN/CLAVULANATE K 875-125 MG TAB 1 TABLET PO (08:10)
[2023-06-22] MEDS: PANTOPRAZOLE 40 MG TABLET PO (08:10)
[2023-06-22] MEDS: APIXABAN 5 MG TABLET PO ×2 (08:10→20:34)
[2023-06-22] MEDS: CYCLOBENZAPRINE HCL 5 MG TABLET PO ×2 (08:10→20:33)
[2023-06-22] MEDS: GABAPENTIN 100 MG CAPSULE PO ×2 (08:10→20:33)
[2023-06-22] MEDS: dilTIAZem HCL CD 120 MG CAP.24HR 240 MG PO (08:10)
--- NOTE | 2023-06-22 14:14 | PM.PNCARD ---
Progress Note: A&P Assessment and Plan (1) Atrial fibrillation with rapid ventricular response: Code(s): I48.91 - Unspecified atrial fibrillation Status: Acute Assessment and Plan: Presents with shortness of breath and palpitations and was found to be in atrial fibrillation with rapid ventricular response. This is a new diagnosis. Continue Eliquis 5 mg twice daily this evening. Continue diltiazem but increase to 360 mg daily. Give additional 120 mg diltiazem CD x1 now. Change metoprolol to 75 mg b.i.d. to simplify regimen. Continue telemetry. Monitor BP closely. 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 (2) Hypertension: Code(s): I10 - Essential (primary) hypertension Status: Acute Assessment and Plan: At goal. Continue monitor closely. She is tolerating diltiazem 240 mg daily, metoprolol tartrate 50 mg 3 times daily. (3) Transaminitis: Code(s): R74.01 - Elevation of levels of liver transaminase levels Status: Acute Assessment and Plan: Significant elevation in liver function tests. Trending down. Management per primary service (4) Pneumonia: Code(s): J18.9 - Pneumonia, unspecified organism Status: Acute Assessment and Plan: Management per primary service. She has been transitioned to oral antibiotic regimen Subjective Date/time seen: Date of service: 06/22/23 14:14 Interval history: Cardiology follow-up for atrial fibrillation Date of service 06/20/2023: She went back into RVR last night and was placed back on Diltiazem drip. She is rate controlled currently. Date of service 06/21/2023: Remains tachycardic today, rate 115-130 generally. She is asymptomatic. Date of service 06/22/2023: Patient tachycardic this morning heart rates in the 120s but little better later today. Patient wants to go home. Denies dizziness, shortness of breath or chest pain. Review of Systems Review of Systems: Remainder of the review of systems is otherwise negative aside from that noted in the HPI. All systems reviewed & are unremarkable except as noted in HPI and below ROS unobtainable: Yes unobtainable due to medical condition Constitutional: Constitutional: Reports as per HPI and Reports no additional constitutional complaints Eyes: Eyes: Reports as per HPI and Reports no additional eye complaints ENT: Reports system reviewed and no additional complaints, except as documented and Reports as per HPI Cardiovascular: Cardiovascular: Reports as per HPI and Reports no additional cardiovascular complaints Respiratory: Respiratory: Reports as per HPI and Reports no additional respiratory complaints Gastrointestinal: Gastrointestinal: Reports as per HPI and Reports no additional gastrointestinal complaints Genitourinary: Genitourinary: Reports as per HPI Musculoskeletal: Musculoskeletal: Reports no additional musculoskeletal complaints and Reports as per HPI Integumentary/Breasts: Skin/Breast: Reports system reviewed and no additional complaints, except as docu and Reports as per HPI Neurologic: Reports system reviewed and no additional complaints, except as documented and Reports as per HPI Psychiatric: Psychiatric: Reports no additional psychiatric complaints and Reports as per HPI Endocrine: Endocrine: Reports no additional endocrine complaints and Reports as per HPI Hematologic/Lymphatic: Hematologic/Lymphatic: Reports no additional hematologic/lymphatic complaints and Reports as per HPI Allergic/Immunologic: Allergic/Immunologic: Reports no additional allergic/immunologic complaints and Reports as per HPI Exam Const: General: comfortable, no acute distress, alert and awake Orientation/
--- NOTE | 2023-06-22 14:28 | PM.IMPN ---
Progress Note: A&P Assessment and Plan (1) Atrial fibrillation with rapid ventricular response: Code(s): I48.91 - Unspecified atrial fibrillation Status: Acute Assessment and Plan: Patient seen in the PCP office 06/13 for SOB. She was tachycardic (109) and hypoxic (89%) No exam listed but may have been AFib at that time. She presents to the ED and found to have new onset AFib with rapid ventricular response Troponin negative x2 Echo showing EF 55-60% with biatrial enlargement with RV mildly enlarged Started on diltiazem drip with better rate control [id number] score of 3, started on Lovenox. On 06/19 she has been converted already to PO diltiazem. Tomorrow her diltiazem is increased to 240 mg q.day by Cardiology. Continue to monitor heart rate and blood pressure. Give additional doses today as appropriate. Per cardiology will transition from Lovenox to Eliquis. Will attempt to discontinue her diclofenac replace with a non NSAID pain killer if she allows. On 06/20 overnight placed on diltiazem drip. Cardiology to manage. Metoprolol being added. Continue Eliquis. On 06/21 patient is off diltiazem drip. Cardiology increasing metoprolol as she still had uncontrolled. Continue to monitor. Continue Eliquis On 06/22 the patient has uncontrolled AFib. Metoprolol switch from 50 t.i.d. to 75 b.i.d.. Diltiazem increased per Cardiology. Need to monitor on telemetry. Hypokalemia is resolved (2) Acute hypoxemic respiratory failure: Code(s): J96.01 - Acute respiratory failure with hypoxia Status: Acute Assessment and Plan: Likely due to community-acquired pneumonia. Resolved on 06/19. On room air. (3) Pneumonia: Code(s): J18.9 - Pneumonia, unspecified organism Status: Acute Assessment and Plan: CXR showed right basilar haziness and she has a leukocytosis and cough. -- was seen in the clinic on 06/13 and diagnosed with PNA treated with Doxycycline and Augmentin CTA showing no PE but mild diffuse ground glass opacities with septal thickening BCx NGTD Continue Rocephin and Azithro. Monitor. Deescalate antibiotics today or tomorrow. Rechecking CBC as she presented with leukocytosis. On 06/20 deescalate to Augmentin for a total 5 day course. Leukocytosis resolved. (4) Hypertension: Code(s): I10 - Essential (primary) hypertension Status: Acute Assessment and Plan: Was on the soft side previously but now normal to slightly elevated. Continue to monitor. Lisinopril and benazepril discontinued which are home medications. (5) Shoulder effusion: Code(s): M25.419 - Effusion, unspecified shoulder Status: Acute Assessment and Plan: CT in 2020 showing severe degenerative changes to the left shoulder CTA chest here showing severe left shoulder OA with large glenohumeral joint effusion likely synovitis. No evidence that the effusion is infectious or impinging on her mobility. Supportive care. (6) Cerebral palsy: Code(s): G80.9 - Cerebral palsy, unspecified Status: Acute Assessment and Plan: Cerebral palsy with affectation of speech Monitor (7) Transaminitis: Code(s): R74.01 - Elevation of levels of liver transaminase levels Status: Acute Assessment and Plan: On admission ALT 174, AST 130, and alk phosp 210 while T bili normal. On 06/19 will recheck the trend. Neither the patient or sister Sailaja are aware of any previous liver issues. She did receive Medrol Dosepak prior to admission so most likely this will just need trending and follow-up as outpatient. On 11/17 transaminitis continues to downtrend. Plan 72-year-old female with past medical history cerebral palsy affecting speech and swallowing, hypertension, arthritis who presents from her PCP office as she was evaluated for shortness of breath and was found to be hypoxic and tachycardic. Admitted on 06/17 for acute hypoxic re
[2023-06-22] MEDS: dilTIAZem HCL CD 120 MG CAP.24HR PO (16:32)
[2023-06-22] MEDS: METOPROLOL TARTRATE TAB 25 MG, METOPROLOL TARTRATE TAB 50 MG 75 MG PO (20:33)
--- NOTE | 2023-06-22 21:28 | PC.NURSE ---
This patient, Magdalena Dewey, was transferred to [3rd med-surg, room 321 ] on 06/22/23 at 2128. Personal belongings sent with patient. Report given to [RACHEL Samano ]. Appropriate documentation sent with patient. Pt spoke with her sister, Sailaja, on the phone and notified her of transfer.
[2023-06-23] VITALS: BP 119/70; PULSE 80; PULSE 81; RESP 13; TEMP 36.1; O2SAT 100
[2023-06-23 04:00] VITALS: PULSE 75
[2023-06-23 05:31] VITALS: BP 129/81; PULSE 79; RESP 12; TEMP 36.4; O2SAT 94
[2023-06-23 06:55] LABS: Anion Gap 1 mmol/L (8-16); Blood Urea Nitrogen 20 mg/dL (7-17); Carbon Dioxide 28 mmol/L (22-30); Chloride 108 mmol/L (98-107); Estimated CRCL calculation 66 ml/min; Estimated Glomerular Filt Rate > 60; Glucose 89 mg/dL (65-110); Sodium 137 mmol/L (137-145)
[2023-06-23] MEDS: dilTIAZem HCL CD 180 MG CAP.24HR 360 MG PO (08:03)
[2023-06-23 08:04] VITALS: PULSE 80
[2023-06-23] MEDS: METOPROLOL TARTRATE TAB 25 MG, METOPROLOL TARTRATE TAB 50 MG 75 MG PO (08:04)
[2023-06-23] MEDS: PANTOPRAZOLE 40 MG TABLET PO (08:04)
[2023-06-23] MEDS: APIXABAN 5 MG TABLET PO (08:05)
[2023-06-23] MEDS: GABAPENTIN 100 MG CAPSULE PO (08:05)
[2023-06-23] MEDS: CYCLOBENZAPRINE HCL 5 MG TABLET PO (08:05)
[2023-06-23 08:09] VITALS: PULSE 103
[2023-06-23 12:00] VITALS: PULSE 74
--- NOTE | 2023-06-23 13:10 | PM.DS ---
DS: Admitting Diagnosis Discharge Date June 23, 2023 Admitting Diagnosis Shortness of breath DS: Discharge Diagnosis Discharge Diagnosis (1) Atrial fibrillation with rapid ventricular response: Code(s): I48.91 - Unspecified atrial fibrillation Status: Acute (2) Acute hypoxemic respiratory failure: Code(s): J96.01 - Acute respiratory failure with hypoxia Status: Acute (3) Transaminitis: Code(s): R74.01 - Elevation of levels of liver transaminase levels Status: Acute (4) SOB (shortness of breath): Code(s): R06.02 - Shortness of breath Status: Acute (5) Shoulder effusion: Code(s): M25.419 - Effusion, unspecified shoulder Status: Acute (6) Pneumonia: Code(s): J18.9 - Pneumonia, unspecified organism Status: Acute DS: Summary Hospital Course Hospital Course: 72-year-old female with a past medical history cerebral palsy affecting speech and swallowing, hypertension, arthritis, new onset AFib with RVR on Eliquis. She presented from PCP office as she was found to be short of breath hypoxic and tachycardic on a routine follow-up. She was admitted on 219 for acute hypoxic respiratory failure and AFib with RVR. Surface echocardiogram demonstrated the followin. Complete two-dimensional, color flow and Doppler transthoracic echocardiogram is performed. ? 2. Left ventricular chamber dimension is normal. ? 3. Left ventricular systolic function is normal, estimated at 55-60%. ? 4. Left ventricular septal wall motion is abnormal with septal motion related to bundle branch block. ? 5. Right ventricular chamber dimension is mildly enlarged. ? 6. Right ventricular systolic function is normal. ? 7. Left atrial chamber dimension is severely enlarged. ? 8. Right atrial chamber dimension is severely enlarged. ? 9. There is mild mitral valve regurgitation. ? 10. There is mild tricuspid valve regurgitation. The patient was started on a diltiazem drip and eventually converted to 360 mg daily and metoprolol 75 mg p.o. b.i.d.. This brought her into rate control. She was also started on Eliquis 5 mg twice daily. Follow-up in Cardiology office is being arranged. She was treated for community-acquired pneumonia with Rocephin and azithromycin transition to Augmentin. Acute hypoxic respiratory failure did resolve. CTA chest demonstrating severe left shoulder OA with large glenohumeral joint effusion likely synovitis. This did not appear to impinge on her ability to mobilize her arm. Follow-up at PCPs office. She also had transaminitis which improved greatly. This should also be followed up at outpatient PCP visit. The patient educated on adverse effects and risks versus benefits of new medications. He also knows to follow up in PCP office and Cardiology within 2-3 weeks. She was in understanding and agreement with this plan. The patient was DNR during her admission. Time Spent with Patient Time attestation: Total time spent providing and/or coordinating discharge services: Exam Const: General: comfortable and no acute distress Other: A&O x3 HENMT: Mouth: Yes moist mucous membranes Other: Edentulous. Neck: Neck: supple and no JVD Resp: Effort & Inspection: normal respiratory effort Auscultation: clear to auscultation bilaterally Cardio: Rate: tachycardic Rhythm: abnormal rhythm GI: GI Palp: Yes Soft to palpation and No Tenderness to palpation present (GI) Extrem: General: no edema Psych: Mental Status: mental status grossly normal DS: Data Data Completed and Pending Labs on day of discharge: Labs from last 24 hours 06/23/23 06:14 Sodium 137 Potassium 4.0 Chloride 108 H Carbon Dioxide 28 Anion Gap 1 L BUN 20 H Creatinine 0.60 L Estim Creat Clear Calc 66 Estimated GFR > 60 Glucose 89 Calcium 9.0 Discharge Plan Discharge Attending physician on discharge: Henrietta Cavanaugh Consulting provider
== END 2023-06-23 13:50 | disposition home or self-care (01) | DRG 193 ==
LOC: ANHED 07:14 → ANHIMU 08:13 → ANH3MEDSUR 06-22 21:30
PROVIDERS: Internal Medicine; Admitting Provider Hospitalist; Emergency Provider Emergency Medicine; PCP Family Medicine; Visit Provider General Practice
DX: J18.9 Pneumonia, unspecified organism (principal); J96.01 Acute respiratory failure with hypoxia; G80.9 Cerebral palsy, unspecified; I10 Essential (primary) hypertension; I25.10 Atherosclerotic heart disease of native coronary artery without angina pectoris; I48.91 Unspecified atrial fibrillation; M19.90 Unspecified osteoarthritis, unspecified site; M25.412 Effusion, left shoulder; M19.012 Primary osteoarthritis, left shoulder; R74.01 Elevation of levels of liver transaminase levels; R13.10 Dysphagia, unspecified; Z20.822 Contact with and (suspected) exposure to COVID-19; Z66 Do not resuscitate; Z91.81 History of falling
CPT/HCPCS: 36415; 71045; 71275; 80048; 80053; 83605; 83690; 83735; 83880; 84484; 85025; 85027; 85610; 85730; 87040; 87637; 93005; 93306; 96365; 96366; 96367; 96368; 99285; A9270; J0456; J0696; J1160; J1650; Q9967

== ENCOUNTER 2023-06-28 09:11 | Emergency (ER) | payer MEDICARE, SELFPAY ==
--- NOTE | ~2023-06-28 | XR_ITS ---
EXAMINATION: XR shoulder LT min 2V DATE: 06/28/2023 09:38 INDICATION: Left shoulder pain TECHNIQUE: AP internally and externally rotated, AP oblique externally rotated and transscapular Y vi ews of the left shoulder were obtained. COMPARISON: None FINDINGS: Normal alignment. No fracture.Advanced glenohumeral osteoarthritis with remodeling and loss of bone stock at the glenoid. Mild acromioclavicular osteoarthritis. Soft tissues are unremarkable. Severe ce rvical spondylosis. A few tiny calcified nodules in the left lung consistent with old granulomatous d isease. IMPRESSION: 1. Advanced left glenohumeral osteoarthritis. No acute osseous abnormality. 2. Severe cervical spondylosis. Reviewed, dictated and finalized at location B. [facility]
--- NOTE | 2023-06-28 09:14 | ED.UPPEXIN ---
HPI - Extremity Injury (Upper) General Chief Complaint: Extremity Injury, Upper Stated Complaint: Left Shoulder pain Time Seen by Provider: 06/28/23 09:14 Source: patient Mode of arrival: ambulatory Limitations: no limitations History of Present Illness HPI narrative: Magdalena is a 72-year-old female patient presenting to the ER today with complaints left shoulder injury that began this morning. She reports no known injury. Does have history of CP with some spasticity. Reports the pain starts in the left side of her neck radiates into the left shoulder and down the left arm. Denies any chest pain or chest pain. Related Data Home Medications Medication Instructions Recorded Confirmed cyclobenzaprine 5 mg tablet 5 mg PO Q12H 06/17/23 06/17/23 gabapentin 100 mg capsule 100 mg PO Q12H 06/17/23 06/17/23 Allergies Allergy/AdvReac Type Severity Reaction Status Date / Time No Known Allergies Allergy Verified 06/27/23 10:18 Review of Systems Review of Systems: Pertinent positives per HPI. Patient denies any fever, chills, rash, headache, visual changes, dizziness, cough, runny nose, sore throat, shortness of breath, chest pain, palpitations, nausea, vomiting, diarrhea, constipation, abdominal pain, or any urinary issues. [facility] Past Medical History Medical History Arthritis Cardiac valve prolapse Cerebral palsy Chronic pain Cyst in hand Dermoid cyst of scalp Diarrhea Difficulty swallowing Excess ear wax Ganglion cyst of wrist Hypertension Left shoulder pain Pneumonia Right ankle pain SOB (shortness of breath) Surgical History Surgical History History of hip surgery Family History Family History Father Aneurysm Mother Hypertension Sibling Diabetes mellitus Social History Social History Smoking status: Never smoker Second hand tobacco smoke exposure: No Alcohol intake: never Substance use: never Do You Feel Safe in your Home?: Yes Lack of Transportation: No Lack of Food: Never True Current Housing: I Have Housing Concerned About Future Housing: No Difficulty Paying Gas/Electric Bills: No Difficulty Paying for Meds: No Currently Unemployed: No Education: High School Diploma/GED Difficulty w/ Childcare or Family Care: No Living arrangements: with family Occupation/Education: occupation Gender identity (if verbalized by the patient): Female Sexual Orientation (if Verbalized by the Patient): Straight or Heterosexual Spiritual care concerns: No Comments At the time of my signature, I reviewed and agree with the nursing past medical, surgical, social, and family history. There is no relevant family history pertinent to the patient complaint. Exam Narrative: General: Well-developed, well nourished, in no apparent distress Head: Normocephalic, atraumatic. Cardio: Regular rate and rhythm, s1 and s2 normal, no murmur appreciated. Resp: Clear to auscultation bilaterally, no rhonchi, rales, wheezing or rubs. Musculoskeletal: No deformity, tender to palpation over the left posterior cervical spine, over the edge trapezius musculature, with pain radiating into the shoulder and down the upper arm, pain with raising her arm above her head, pain with hyperextension of the neck, muscle strength strong and equal, peripheral pulse strong, no edema, no cyanosis, normal gait and station Course Course Emergency Course: Portions of this record may have been created with voice recognition software. Vital Signs Vital signs: Vital signs reviewed MDM - Extremity Injury (Upper) MDM Narrative Medical decision making narrative: At the time of visit patient is resting comfortably on the exam table. Patient appears to be nontoxic. EKG:
--- NOTE | 2023-06-28 09:18 | ECG_ITS ---
Measurements Intervals Welch Rate: 74 P: HI: 0 QRS: 96 QRSD: 97 T: -59 QT: 399 QTc: 445 Interpretive Statements ATRIAL FIBRILLATION RIGHT AXIS DEVIATION INCOMPLETE RIGHT BUNDLE BRANCH BLOCK NONSPECIFIC ST-T WAVE ABNORMALITY- ANT/INF LEADS BASELINE ARTIFACT- I, II, III, AVR, AVL, AVF, V1-V6 ABNORMAL ECG COMPARED TO ECG 06/17/2023 07:27:08 HEART RATE HAS DECREASED Electronically Signed On 06-28-2023 9:48:54 [employer] by Chu Peters D.O.
[2023-06-28 09:20] VITALS: BP 125/79; PULSE 82; RESP 20; TEMP 36.6; O2SAT 100
[2023-06-28 10:20] VITALS: BP 113/77; PULSE 70; RESP 16; TEMP 36.7; O2SAT 100
[2023-06-28 10:49] VITALS: BP 119/80; PULSE 63; RESP 17; O2SAT 97
== END 2023-06-28 10:54 | disposition home or self-care (01) ==
PROVIDERS: Emergency Provider Nurse Practitioner Family; PCP Family Medicine
DX: M19.012 Primary osteoarthritis, left shoulder (principal); M47.812 Spondylosis without myelopathy or radiculopathy, cervical region; S16.1XXA Strain of muscle, fascia and tendon at neck level, initial encounter; I10 Essential (primary) hypertension; X58.XXXA Exposure to other specified factors, initial encounter
CPT/HCPCS: 73030; 93005; 99283

== ENCOUNTER 2024-11-27 07:15 | Outpatient (CLI) | payer MEDICARE, SELFPAY ==
[2024-11-27 07:49] LABS: Hematocrit 41.6 % (37.0-47.0); Hemoglobin 13.6 g/dL (12.0-15.0); Immature Granulocyte Percent A 0.0 % (0-0.5); Lymphocytes Absolute Auto 1.84 K/mm3 (0.9-3.2); Mean Corpuscular HGB Conc 32.7 g/dl (32-36); Mean Corpuscular Hemoglobin 32.0 pg (26-34); Mean Corpuscular Volume 97.9 fl (80-100); Nucleated Red Blood Cells Absolute Auto 0.000 K/mm3 (0.0-0.012); Nucleated Red Blood Cells Perc 0.0 % (0.0-0.2); Platelet Count Result 341 k/mm3 (150-375); Red Blood Count 4.25 M/mm3 (4.2-5.4); White Blood Count 5.6 K/mm3 (4.5-10.0)
[2024-11-27 08:09] LABS: Alanine Aminotransferase 27 U/L (6-35); Albumin Level 4.3 g/dL (3.5-5.1); Alkaline Phosphatase 83 U/L (38-126); Anion Gap 7 mmol/L (4-12); Aspartate Amino Transferase 45 U/L (14-36); Bilirubin,Total 0.4 mg/dL (0.2-1.3); Blood Urea Nitrogen 14 mg/dL (7-17); Calcium 9.4 mg/dL (8.4-10.2); Carbon Dioxide 27 mmol/L (22-30); Chloride 106 mmol/L (98-107); Cholesterol 196 mg/dL (0-200); Estimated Glomerular Filt Rate > 60; Glucose 87 mg/dL (65-110); HDL Direct 54 mg/dL; Potassium 4.0 mmol/L (3.4-5.0); Sodium 140 mmol/L (137-145); Total Protein 7.4 g/dL (6.3-8.2); Triglycerides 171 mg/dL (<150)
== END 2024-11-27 07:16 | disposition home or self-care (01) ==
PROVIDERS: PCP Family Medicine; Visit Provider Student in an Organized Health Care Education/Training Program
DX: G80.9 Cerebral palsy, unspecified (principal); E78.5 Hyperlipidemia, unspecified; R53.83 Other fatigue; I10 Essential (primary) hypertension
CPT/HCPCS: 36415; 80053; 80061; 85025